=== PATIENT | male | born 1995 | race Caucasian/White ===

== ENCOUNTER 2022-09-27 01:35 | Emergency (ER) | payer OTHER, SELFPAY ==
[2022-09-27 01:44] VITALS: BP 163/91; PULSE 60; RESP 16; TEMP 36.6; O2SAT 99
--- NOTE | 2022-09-27 01:54 | ED_ITS ---
HPI - General Adult General Chief complaint: Chest Pain Stated complaint: tightness in chest,light headed,chills Time Seen by Provider: 09/27/22 01:53 History of Present Illness HPI narrative: about a week ago patient stopped drinking caffeine, was drinking approx 1 energy drink per day 300mg. since stopping he has been having a hard time sleeping, feeling a twing under L bicept and in chest, mostly when he lays down. denies any SOB. called his mom ford due to feeling this way and she advised him to be checked out. 27-year-old young man presenting to the emergency department on advice of his mother for twinges of chest pain. This has been going on off for about a week. Not associated with any particular activity. No specific injury. No history of arrhythmias. Sometimes will get flashes of lightheadedness of unclear etiology but just momentary and on associated with these twinges. Not noticing fasciculations. Did discontinue supplement as noted above. Otherwise does continue to take creatine for workouts at the gym. Drinks ?a lot? 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 Related Data Home Medications Medication Instructions Recorded Confirmed No Known Home Medications 09/27/22 09/27/22 Allergies Allergy/AdvReac Type Severity Reaction Status Date / Time No Known Drug Allergies Allergy Verified 09/27/22 01:49 Review of Systems Status of ROS: Reports: 6 or more systems reviewed and unremarkable except as noted in History and below [facility] Social History Smoking Status: Never smoker Do you use any of these nicotine containing products: None How often do you have a drink containing alcohol: 2-4 times a month How often do you have six or more drinks on one occasion: Never AUDIT-C Alcohol total score: 2 Non-prescribed substance use: denies use Exam Narrative: Exam Narrative: Very pleasant. Well-nourished. Well muscled. Skin is warm and dry without rash or any evidence swelling. He has full strength throughout and well- perfused peripherally. No swellings are palpable about the shoulder or axilla. Has full range of motion at the shoulder. No pain to palpation in the periscapular/rhomboid musculature. No midline neck or back tenderness. He has full nontender range of motion at the neck. Heart is in a regular rate and rhythm. Lungs are clear. No reproducible discomfort to palpation about chest wall or elsewhere. Const: Vital Signs, click to edit/add: Vital Signs - 24 hr 09/27/22 01:44 09/27/22 02:49 Temperature 98 F Pulse Rate [Pulse Oximeter] 60 70 Respiratory Rate 16 18 Blood Pressure [Ri ght Upper Arm] 163/91 H 132/79 Pulse Oximetry 99 99 Oxygen Delivery Me thod Room Air Room Air Documenting provider has reviewed patient's vital signs: yes Course Vital Signs Vital signs: Initial Vital Signs Temperature 98 F 09/27/22 01:44 Temperature Source Temporal Artery Scan 09/27/22 01:44 Pulse Rate 60 09/27/22 01:44 Respiratory Rate 16 09/27/22 01:44 Blood Pressure 163/91 H 09/27/22 01:44 Blood Pressure Mean 115 H 09/27/22 01:44 Blood Pressure Position Supine 09/27/22 01:44 Pulse Oximetry 99 09/27/22 01:44 Oxygen Delivery Method Room Air 09/27/22 01:44 Vital Signs Temperature 98 F 09/27/22 01:44 Pulse Rate 60 09/27/22 01:44 Respiratory Rate 16 09/27/22 01:44 Blood Pressure 163/91 H 09/27/22 01:44 Pulse Oximetry 99 09/27/22 01:44 Oxygen Delivery Method Room Air 09/27/22 01:44 Temperature 98 F 09/27/22 01:44 Pulse Rate 70 09/27/22 02:49 Respiratory Rate 18 09/27/22 02:49 Blood Pressure 132/79 09/27/22 02:49 Pulse Oximetry 99 09/27/22 02:49 Oxygen Delivery Method Room Air 09/27/22 02:49 Medical Decision Making MDM Narrative Medical decision making narrative: I suppose it is reasonable to check chemistries for renal function given supplement use. Possibly this could translate into some electrolyte abnormalities although symptoms are described as rather localized. There may be some nerve impingement but not really reproducible here at this time. Does not seem to be a thoracic outlet syndrome. I think cardiovascular ischemic issue wa s unlikely though can check a couple of labs in this regard. Transient arrhythmia as explanation for lightheadedness? Maybe simple muscular isolated stress with subsequent fasciculations? Unlikely anemia. Pulmonary embolus? Laboratory evaluation as expected is reassuring. No further events during monitoring in the ER. See patient discharge plan Lab Data Lab results reviewed: Yes I reviewed the patient's lab results Labs: Lab Results 09/27/22 Range/Units 02:20 Hgb 14.3 (13.5-17.5) gm/dL Sodium 140 (135-149) mmol/L Potassium 3.5 L (3.6-5.1) mmol/L Chloride 107 (96-114) mmol/L Carbon Dioxide 27 (20-32) mmol/L BUN 11 (5-24) mg/dL Creatinine 1.0 (0.5-1.5) mg/dL Estimated Creat Clear 117.13 Estimated GFR 105 ml/min Glucose 106 (60-115) mg/dL Calcium 9.2 (8.4-10.6) mg/dL Troponin I < 0.01 L (0.01-0.04) ng/mL NT-Pro-B Natriuret Pep < 20 pg/mL ECG Data Attestation: I personally reviewed and interpreted this ECG as follows: (Normal sinus rate of 61. Sinus arrhythmia) Discharge Plan Discharge Clinical Impression: Atypical chest pain Patient Disposition: Home, Self-Care Condition: Stable Additional Instructions: Continue to stay well hydrated. I have not seen any indication to change your activity level or activities at this point. Consider follow-up with primary care provider for further evaluation. Otherwise return to emergency department for persistent and increasing chest pain, particularly if accompanied by shortness of breath, lightheadedness. Prescriptions: No Action No Known Home Medications Follow Up/Referrals: Provider,Not a Local [Primary Care Provider] - Stand Alone Forms: [email or web address] Info Instructions
[2022-09-27 02:31] LABS: Hemoglobin* 14.3 gm/dL (13.5-17.5)
[2022-09-27 02:44] LABS: Chloride* 107 mmol/L (96-114); Sodium* 140 mmol/L (135-149)
[2022-09-27 02:45] LABS: Potassium* 3.5 mmol/L (3.6-5.1)
[2022-09-27 02:47] LABS: Est. Creatinine Clearance* 117.13; Estimated Glomerular Filt Rate 105 ml/min
[2022-09-27 02:48] LABS: Blood Urea Nitrogen* 11 mg/dL (5-24); Calcium* 9.2 mg/dL (8.4-10.6); Carbon Dioxide* 27 mmol/L (20-32); Glucose* 106 mg/dL (60-115)
[2022-09-27 02:49] VITALS: BP 132/79; PULSE 70; RESP 18; O2SAT 99
[2022-09-27 03:01] LABS: NT Pro B Type NatriureticPept* < 20 pg/mL; Troponin I* < 0.01 ng/mL (0.01-0.04)
== END 2022-09-27 04:08 | disposition home or self-care (01) ==
PROVIDERS: Emergency Provider Family Medicine
DX: R07.89 Other chest pain (principal)
CPT/HCPCS: 36415; 80048; 83880; 84484; 85018; 93005; 99284